=== PATIENT | female | born 1995 ===

== ENCOUNTER → 2018-09-16 12:51 | Outpatient (CLI) | payer OTHER, MEDICAID, SELFPAY ==
[2018-09-16 13:44] LABS: Add Manual Diff / Slide Review NO; Basophils Percent Auto 0.4 % (0-2); Eosinophils Percent Auto 1.5 % (2-4); Hematocrit 40.1 % (36-46); Hemoglobin 13.5 g/dL (12.0-16.0); Lymphocytes Percent Auto 25.5 % (25-40); Mean Corpuscular HGB Conc 33.7 % (30-36); Mean Corpuscular Hemoglobin 28.5 PG (26-34); Mean Corpuscular Volume 84.5 fL (80-100); Monocytes Percent Auto 7.2 % (3-14); Neutrophils Absolute Auto 5500 /uL (3000-5900); Neutrophils Percent Auto 65.4 % (50-75); Platelet Count 226 X10^3/uL (150-400); Red Blood Cell Count 4.75 X10^6/uL (4.0-5.2); Red Cell Distribution Width 13.1 % (11.6-14.8); White Blood Cell Count 8.4 X10^3/uL (4.5-11.0)
[2018-09-16 16:20] LABS: HIV 1 and 2 Antibody NEGATIVE (NEGATIVE); Hep C Virus Ab w/Reflex Quant NEGATIVE s/c (NEGATIVE); Hepatitis B Surface Antigen NEGATIVE s/c (NEGATIVE); Rubella Antibody IgG 11.2 IU/mL (>15)
[2018-09-18 14:59] LABS: RPR Screen Nonreactive (Nonreactive)
[2018-09-18 15:02] LABS: Varicella IgG Antibody < 135.00 Index (< 135.00)
[2018-09-18 15:06] LABS: HSV 2 IGG AB < 0.90 index (< 0.90)
== END ==
PROVIDERS: Visit Provider Specialist
DX: Z34.91 Encounter for supervision of normal pregnancy, unspecified, first trimester (principal)
CPT/HCPCS: 36415; 80055; 86695; 86696; 86703; 86787; 86803; 86850; 86900; 86901

== ENCOUNTER → 2018-12-10 15:02 | Outpatient (CLI) | payer OTHER, MEDICAID, SELFPAY ==
--- NOTE | 2018-12-10 15:03 | DI.US.S_ITS ---
PROCEDURE: US OB >= 14 WEEKS FETUS INDICATIONS: Anatomy Scan OUTSIDE/PRIOR DATING DATA: Last menstrual period (LMP): 07/22/2018. LMP-based estimated date of delivery (GRUPO): 04/28/2019. First dating scan (date and location): 09/22/2018. Estimated date of delivery (GRUPO) from first dating scan: 04/30/2019. TECHNIQUE: Real-time scanning was performed of the fetus, with image documentation and biometric measurements. COMPARISON: [facility], OB >= 14 WEEKS FETUS, 11/24/2018, 13:56. [facility], OB <= 14 WEEKS FETUS, 09/22/2018, 16:42. FINDINGS: General: A single living intrauterine gestation is present. Presentation: Vertex Placenta: Placental position is fundal, without previa. Amniotic fluid index: 14.6 cm, normal range is 5-24 cm. heart rate: 155 beats per minute. Maternal cervical canal: 3.1 cm long. Normal lower limit is 2.5 cm. biometrics: Biparietal diameter: 19 weeks 6 days Head circumference: 20 weeks 0 days Abdominal circumference: 21 weeks 0 days Femur length: 20 weeks 3 days Estimated gestational age from initial scan: 19 weeks 6 days. Composite gestational age from present scan: 20 weeks 2 days Estimated weight and percentile: 366 g; 86th percentile Measurement variability for biometric dating: +/- 7 days from 14 weeks to 15 weeks 6 days gestation, +/- 10 days from 16 weeks to 21 weeks 6 days gestation, +/- 2 weeks from 22 weeks to 27 weeks 6 days gestation, +/- 3 weeks for 28 weeks gestation or later. weight reference: 4500 g or EFW >90/95% is considered macrosomia or large for gestational age. EFW <10% is small for gestational age. EFW 5% or less is considered intra-uterine growth restriction. Anatomic survey: Neuro: Ventricles are non-dilated at less than 10 mm. Cisterna magna is normal at 3-11 mm. Cerebellum is normal in size and morphology. Nuchal skin fold: Normal at less than 6 mm between 14-21 weeks gestational age. Face: Nose and lips, facial profile are normal. Spine: No evidence for spina bifida. Heart: 4-chambered heart is present, with normal ventricular outflow tracts. Diaphragm: Diaphragm is intact. Stomach: Left-sided stomach is present. Kidneys: No hydronephrosis. Normal is less than 5 mm in 2nd trimester, less than 7 mm in 3rd trimester. Cord: 3-vessel cord has orthotopic insertion. Bladder: Normal in size. Extremities: All 4 extremities identified. IMPRESSION: 1. Single living intrauterine fetus with appropriate interval growth. 2. Normal anatomic survey. Dictated by: Michelle Kaur MD, PhD on 12/10/2018 at 16:33 Approved by: Michelle Kaur MD, PhD on 12/10/2018 at 16:36
== END ==
PROVIDERS: Family Provider Specialist; PCP Specialist; Visit Provider Specialist
DX: Z36.89 Encounter for other specified antenatal screening (principal); Z3A.20 20 weeks gestation of pregnancy
CPT/HCPCS: 76811

== ENCOUNTER → 2019-01-25 13:34 | Outpatient (CLI) | payer OTHER, MEDICAID, SELFPAY ==
[2019-01-25 15:14] LABS: Hematocrit 35.9 % (36-46); Hemoglobin 12.1 g/dL (12.0-16.0)
[2019-01-25 15:38] LABS: GTT (PREG) 1 Hour PP 50gm Dose 95 mg/dL (76-139)
== END ==
PROVIDERS: Family Provider Specialist; PCP Specialist; Visit Provider Specialist
DX: Z34.82 Encounter for supervision of other normal pregnancy, second trimester (principal); Z3A.26 26 weeks gestation of pregnancy
CPT/HCPCS: 82950; 85014; 85018

== ENCOUNTER → 2019-03-30 15:42 | Outpatient (CLI) | payer OTHER, MEDICAID, SELFPAY ==
[2019-03-31 13:13] LABS: Strep Grp B PCR NEG for Grp B Strep
== END ==
PROVIDERS: Family Provider Specialist; PCP Specialist; Visit Provider Specialist
DX: Z34.83 Encounter for supervision of other normal pregnancy, third trimester (principal); Z3A.35 35 weeks gestation of pregnancy
CPT/HCPCS: 87653

== ENCOUNTER 2019-04-18 12:18 | Inpatient (IN) | payer OTHER, MEDICAID, SELFPAY ==
--- NOTE | 2019-04-18 13:45 | PM.OBHP.1 ---
OB HPI Date/Time Date of admission: 04/18/19 Date Patient Seen: 04/18/19 Time Patient Seen: 13:46 History of Present Condition Chief complaint: EVALUATION OF LABOR : 2 Para: 1 Estimated Date of Delivery: 04/28/19 Estimated Gestational Age (weeks): 38 and Narrative: Lauren Horne is a 23 year old female two para one with an GRUPO of 04/24/2019. Patient is had an uneventful . All initial laboratory studies were normal. Her GBS screen was negative. Glucose screen was negative. Patient presents in labor over the last 2-3 hours with regular contractions. History of Present care: good care, initiated at week # (8), number of visits (11) and pounds weight gain (8) Dating criteria: LMP confirmed by 1st trimester US Ultrasounds: normal 1st trimester US and normal mid trimester US Obstetrical complications: none Medical complications: none Preadmission Labs Blood type: A (+) positive -: Antibody screen: negative, Cystic fibrosis screen: unknown, GBS status: negative, HBsAG: negative, HIV: negative, HSV 1: negative, HSV 2: negative and RPR/VDLR: negative -: Chlamydia screen: detected (Negative) and Gonorrhea screen: detected (Negative) -: Rubella: not immune and Varicella: not immune HCT: 40 HCAB: negative PAP: Normal Integrated screen: Negative Sequential screen: Negative 1 hr GTT: 95 Evaluation Evaluation Variability: Moderate (11-25) monitor accelerations: Present monitor decelerations: Absent Contraction Frequency (minutes): 3 Uterine Contraction Intensity: Moderate Category of Tracing: I Cervical dilation (cm): 5 Cervical effacement (%): 100 Meds Home Medications Medication Instructions Recorded Confirmed Type Double Electric Breast Pump #1 each 02/09/19 Rx Allergies Allergy/AdvReac Type Severity Reaction Status Date / Time No Known Drug Allergies Allergy Unknown Unverified 01/20/18 12:35 [NO KNOWN DRUG ALLERGIES] Review of Systems Review of Systems All systems reviewed & are unremarkable except as noted in HPI and below Exam Const General: cooperative and healthy appearing HENMT Head: normal to inspection Ears: hearing grossly normal bilaterally Nose: external nose normal Face and sinus: normal facial exam Mouth: oral mucosae normal, lip normal, tongue normal and moist mucous membranes Teeth and gingiva: dentition normal Throat: posterior oropharynx normal Eyes General: appearance normal, both eyes and all related structures Neck Neck: normal visual inspection and full ROM Chest Chest: normal inspection of the chest and normal palpation of entire chest wall Breast inspection: normal inspection of the breasts and normal inspection of the axillae Breast Palpation: normal palpation of the breasts and normal palpation of the axillae Resp Effort & Inspection: normal respiratory effort Auscultation: clear to auscultation bilaterally Cardio Palpation: normal PMI Rate: regular rate Rhythm: regular rhythm Heart Sounds: S1 normal and S2 normal GI Inspection: normal to inspection Palpation: soft and no hepatosplenomegaly Percussion: normal to percussion Auscultation: normal bowel sounds External Female Exam: external appearance normal and normal appearance of the urethra OB/External & Speculum: external exam normal Manual OB Exam: dilated 5, effaced fully and station 0 Uterus Location (Fundal Height): 38 Estimated Weight (lbs): 7 Amniotic Fluid: clear Back/Spine/Pelvis Thoracic/Lumbar Spine: thoracic and lumbar spine normal to inspection Skin General: no rashes or lesions noted Neuro General: alert, oriented x3, tone normal and moves all extremities Cognition: normal cognition Speech: speech normal Gait: normal gait Motor: muscle tone normal throughout Sensory Exam: no sensory deficits noted Extrem General: normal to inspection and normal exam except as noted Psych Appearance: grossly normal and well kempt Mental Status: mental status grossly normal Speech and Movement: speech and movement normal Objective ECG Impression: Term intrauterine 38 and half weeks Active labor Artificial rupture membranes shows clear fluid Plan is careful observation and epidural anesthesia Assessment and Plan Assessment and Plan Assessment and Plan narrative: Term intrauterine 38 and four 7th weeks Vertex presentation Active labor Artificial rupture membranes with clear fluid
[2019-04-18] MEDS: LACTATED RINGERS 1,000 ML 100 ML IV (14:14)
[2019-04-18 14:15] VITALS: BP 126/69
[2019-04-18 14:25] LABS: Add Manual Diff / Slide Review NO; Basophils Absolute Auto 100 /uL (0-100); Basophils Percent Auto 0.5 % (0-2); Eosinophils Absolute Auto 0 /uL (0-450); Eosinophils Percent Auto 0.1 % (2-4); Hematocrit 36.5 % (36-46); Hemoglobin 12.5 g/dL (12.0-16.0); Lymphocytes Absolute Auto 1900 /uL (1100-4500); Lymphocytes Percent Auto 15.2 % (25-40); Mean Corpuscular HGB Conc 34.1 % (30-36); Mean Corpuscular Hemoglobin 29.3 PG (26-34); Mean Corpuscular Volume 85.9 fL (80-100); Monocytes Absolute Auto 500 /uL (0-900); Monocytes Percent Auto 3.9 % (3-14); Neutrophils Absolute Auto 10300 /uL (1500-7000); Neutrophils Percent Auto 80.3 % (50-75); Platelet Count 219 X10^3/uL (150-400); Red Blood Cell Count 4.25 X10^6/uL (4.0-5.2); White Blood Cell Count 12.8 X10^3/uL (4.5-11.0)
[2019-04-18] MEDS: OXYTOCIN PREMIX 30 UNIT/500 ML PLAST..BAG IV (15:54)
--- NOTE | 2019-04-18 16:23 | P.PCNOB_ITS ---
Delivery date: 04/18/19 Intrapartal events: None Cervical ripening method: none Induction method: none Delivery augmentation: pitocin Delivery monitor: external FHT and external uterine Route of delivery: L&D Laceration Description: None Estimated blood loss (mL): 300 Anesthesia type: Epidural Complications: None Narrative: The patient is a 23-year-old Filipina female two para one who presented at 38 weeks of in active labor at 4 cm. Her ant epartum course was totally uneventful. GBS was negative. Glucose screen was normal. All testing for abnormalities in the 1st and 2nd trimester were normal as well. The patient progressed rapidly to complete and then pushed for approximately 1 hour and delivered spontaneously a live born female at 5 minutes in good condition. There is no PCR me. There were no perineal periurethral vaginal or cervical tears. Placenta delivered spontaneously. The cord had three vessels. Cord blood was obtained. The estimated blood loss was 300 cc Plan for aftercare: Routine aftercare
[2019-04-18 22:22] VITALS: TEMP 37.7
[2019-04-18] MEDS: IBUPROFEN 600 MG TABLET PO (22:22)
[2019-04-19 06:20] LABS: Add Manual Diff / Slide Review NO; Basophils Absolute Auto 100 /uL (0-100); Basophils Percent Auto 0.9 % (0-2); Eosinophils Absolute Auto 0 /uL (0-450); Eosinophils Percent Auto 0.2 % (2-4); Hemoglobin 11.7 g/dL (12.0-16.0); Lymphocytes Absolute Auto 3200 /uL (1100-4500); Lymphocytes Percent Auto 24.7 % (25-40); Mean Corpuscular HGB Conc 34.4 % (30-36); Mean Corpuscular Hemoglobin 29.9 PG (26-34); Mean Corpuscular Volume 86.8 fL (80-100); Monocytes Absolute Auto 1000 /uL (0-900); Monocytes Percent Auto 7.3 % (3-14); Neutrophils Absolute Auto 8700 /uL (1500-7000); Neutrophils Percent Auto 66.9 % (50-75); Platelet Count 191 X10^3/uL (150-400); Red Blood Cell Count 3.92 X10^6/uL (4.0-5.2); Red Cell Distribution Width 13.9 % (11.6-14.8); White Blood Cell Count 13.1 X10^3/uL (4.5-11.0)
[2019-04-19] MEDS: DOCUSATE 250 MG CAPSULE PO (08:58)
[2019-04-19] MEDS: PRENATAL VIT,CALC/IRON/FOLIC 1 TABLET 1 TAB PO (08:58)
[2019-04-19] MEDS: FERROUS GLUCONATE 324 MG TABLET PO (08:58)
[2019-04-19 10:03] VITALS: BP 121/80; PULSE 78; RESP 16; TEMP 37.3
--- NOTE | 2019-04-19 11:15 | P.DS_ITS ---
Discharge Providers Date of admission: 04/18/19 12:18 Discharge Date: 04/19/19 Primary care physician: Lori Will MD Consults: 04/18/19 13:57 Consult to Anesthesiology Urgent Comment: Consulting Provider: Anesthesiologist Reason for consultation: Epidural Has provider been notified: No 04/18/19 17:32 Consult to [employer] Routine Comment: Discharge provider: Giovany Llamas MD Summary Date Patient Seen: 04/19/19 Time Patient Seen: 11:13 Procedures: Epidural anesthesia Spontaneous vaginal Hospital Course: Delivery patient is a 23-year-old Mong[place]ian female two now para two presented in active labor. The patient received epidural anesthesia. Patient progressed rapidly to complete pushed and delivered a live-born male with scores of nine at 1 minute nine at 5 minutes in good condition. The estimated blood loss was 300 cc. There were no cervical vaginal or urethral or perineal tears. Post delivery the patient did well. She remained afebrile with stable vital signs and was progressively element in ambulated. She was discharged home for follow-up in four weeks. Peripartum Data Delivery Method: Natural Vaginal Laceration description: None complications: none Status at Discharge Cognitive/behavioral status at discharge: oriented Functional status at discharge: independent ambulation Overall status at discharge: patient is progressing back to baseline Time Spent with Patient Total time spent providing and/or coordinating discharge services: Less than 30 minutes Objective Labs Result Diagrams: 04/19/19 06:00 Labs: Laboratory Results - last 24 hr 04/18/19 04/18/19 04/19/19 13:57 13:57 06:00 WBC 12.8 H 13.1 H RBC 4.25 3.92 L Hgb 12.5 11.7 L Hct 36.5 34.0 L MCV 85.9 86.8 MCH 29.3 29.9 MCHC 34.1 34.4 RDW 14.0 13.9 Plt Count 219 191 Neut % (Auto) 80.3 H 66.9 Lymph % (Auto) 15.2 L 24.7 L Lander % (Auto) 3.9 7.3 Eos % (Auto) 0.1 L 0.2 L Baso % (Auto) 0.5 0.9 Neut # (Auto) 85494 H 8700 H Lymph # (Auto) 1900 3200 Lander # (Auto) 500 1000 H Eos # (Auto) 0 0 Baso # (Auto) 100 100 Blood Type A Positive Antibody Screen Negative Exam Vital Signs (past 8 hours): - 04/19/19 10:03 Temperature 99.1 F Pulse Rate 78 Respiratory Rate 16 Blood Pressure 121/80 Discharge Plan Discharge Plan Patient Disposition: Home Discharge Med Rec/Prescriptions Prescriptions: New oxycodone-acetaminophen 5-325 mg Tablet 2 tab PO Q4HR Qty: 10 RF: 0 ferrous sulfate [FerrouSul] 325 mg (65 mg iron) tablet 325 mg PO DAILY Qty: 60 RF: 0 benzocaine-menthol [Dermoplast (with menthol)] 20-0.5 % Aerosol 1 spray topical Q1HR PRN (Reason: perineal pain) Qty: 56 RF: 0 ibuprofen 600 mg Tablet 600 mg PO Q6HR PRN (Reason: Pain, Mild (1-3)) Qty: 14 RF: 0 docusate sodium 250 mg Capsule 250 mg PO DAILY Qty: 10 RF: 0 Continued Double Electric Breast Pump Qty: 1 RF: 0 Follow up/Referrals: Lori Will MD [Primary Care Provider] - 05/17/19 (please follow up w/ Dr. Will on May.18 @ 12:30pm) Provider Discharge Instructions Diet: Diet as Tolerated Activity: Up ad jesus alberto Skin/Wound/Dressing Care Report to your healthcare provider any signs of infection, such as:: chills, fever, increased pain, unusual drainage and unusual redness Visit Report/Discharge Packet Stand Alone Forms: Discharge: Care Visit Report Forms: Stroke Signs & Symptoms Discharge Data Primary Care Provider: Lori Will Attending Provider: Lori Will Admit Date/Time: 04/18/19 12:18
[2019-04-19] MEDS: MEASLES,MUMPS,RUBELLA VACC/PF 0.5 ML VIAL SUBCUT (12:31)
== END 2019-04-19 13:04 | disposition home or self-care (01) | DRG 807 ==
PROVIDERS: Admitting Provider Specialist; Family Provider Specialist; PCP Specialist; Visit Provider Specialist
DX: O80 Encounter for full-term uncomplicated delivery (principal); Z37.0 Single live birth; Z3A.38 38 weeks gestation of pregnancy
CPT/HCPCS: 01967; 59050; 59400; 59409; 85025; 86850; 86900; 86901; G0379; J2590

== ENCOUNTER → 2023-07-10 14:50 | Outpatient (CLI) | payer OTHER, MEDICAID, SELFPAY ==
[2023-07-10 15:27] LABS: Add Manual Diff / Slide Review NO; Basophils Absolute Auto 0 /uL (0-100); Basophils Percent Auto 0.6 % (0-2); Eosinophils Absolute Auto 100 /uL (0-450); Eosinophils Percent Auto 1.6 % (2-4); Hematocrit 36.8 % (36-46); Hemoglobin 12.8 g/dL (12.0-16.0); Lymphocytes Absolute Auto 1900 /uL (1100-4500); Lymphocytes Percent Auto 22.7 % (25-40); Mean Corpuscular HGB Conc 34.9 % (30-36); Mean Corpuscular Hemoglobin 29.1 PG (26-34); Mean Corpuscular Volume 83.5 fL (80-100); Monocytes Absolute Auto 500 /uL (0-900); Monocytes Percent Auto 5.6 % (3-14); Neutrophils Absolute Auto 5900 /uL (1500-7000); Neutrophils Percent Auto 69.5 % (50-75); Platelet Count 224 X10^3/uL (150-400); Red Blood Cell Count 4.41 X10^6/uL (4.0-5.2); Red Cell Distribution Width 13.8 % (11.6-14.8); White Blood Cell Count 8.4 X10^3/uL (4.5-11.0)
[2023-07-11 05:28] LABS: RPR Screen Non Reactive (Non Reactive)
[2023-07-11 10:33] LABS: Varicella IgG Antibody <135 index (Immune >165)
[2023-07-13 15:58] LABS: Hepatitis B Surface Antigen NEGATIVE s/c (NEGATIVE); Rubella Antibody IgG 11.7 IU/mL (>15)
[2023-07-13 16:16] LABS: HIV 1 & 2 Ab/Ag 4th Gen Combo NEGATIVE (NEGATIVE); Hep C Virus Ab w/Reflex Quant NEGATIVE s/c (NEGATIVE)
== END ==
PROVIDERS: Family Provider Specialist; PCP Family Medicine; Referring Provider Student in an Organized Health Care Education/Training Program; Visit Provider Student in an Organized Health Care Education/Training Program
DX: Z34.80 Encounter for supervision of other normal pregnancy, unspecified trimester (principal)
CPT/HCPCS: 36415; 80055; 86787; 86803; 86850; 86900; 86901; 87389

== ENCOUNTER → 2023-09-02 14:57 | Outpatient (CLI) | payer OTHER, MEDICAID, SELFPAY ==
--- NOTE | 2023-09-02 14:58 | DI.US.S_ITS ---
PROCEDURE: US OB >= 14 WEEKS FETUS INDICATIONS: ANATOMY OUTSIDE/PRIOR DATING DATA: Last menstrual period (LMP): 04/12/2023 LMP-based estimated date of delivery (GRUPO): 01/17/2024. First dating scan (date and location): 09/02/2023. Estimated date of delivery (GRUPO) from first dating scan: 01/13/2024. Working GRUPO is 01/17/2024 TECHNIQUE: Real-time scanning was performed of the fetus, with image documentation and biometric measurements. COMPARISON: [facility], US, US OB >= 14 WEEKS FETUS, 03/30/2019, 15:54. FINDINGS: General: A single living intrauterine gestation is present. Presentation: Vertex. Placenta: Placental position is posterior , without previa. Amniotic fluid index: 15.2 cm cm, normal range is 5-24 cm. Single deepest vertical pocket is 4.5 cm cm. heart rate: 152 beats per minute. Maternal cervical canal: 3.8 cm cm long. Normal lower limit is 2.5 cm. biometrics: Biparietal diameter: 21 weeks 3 days Head circumference: 20 weeks 5 Abdominal circumference: 21 weeks 5 days Femur length: 20 weeks 2 days Clinically estimated gestational age: 20 weeks 3 days Composite gestational age from present scan: 21 weeks 0 days Estimated weight and percentile: 397 g, 80th percentile Anatomic survey: Neuro: Ventricles are non-dilated at less than 10 mm. Cisterna magna is normal at 3-11 mm. Cerebellum is normal in size and morphology. Nuchal skin fold: Normal at less than 6 mm between 14-21 weeks gestational age. Face: Nose and lips, facial profile are normal. Spine: No evidence for spina bifida. Heart: 4-chambered heart is present, with normal ventricular outflow tracts. Diaphragm: Diaphragm is intact. Stomach: Left-sided stomach is present. Kidneys: No hydronephrosis. Normal is less than 5 mm in 2nd trimester, less than 7 mm in 3rd trimester. Cord: 3-vessel cord has orthotopic insertion. Bladder: Normal in size. Extremities: All 4 extremities identified. Left inferior intramural fibroid measuring 2.6 cm. IMPRESSION: 1. Single living IUP with composite gestational age of 21 weeks corresponding to ultrasound GRUPO of 01/13/2024. 2. Normal anatomic survey We strive to produce accurate, complete, and clear reports of imaging services. To assist us in improving patient care, this report was composed using standard report templates and voice recognition software. Therefore, it may contain abnormal punctuation, insertions and/or omissions. Occasional wrong-word or sound-alike substitutions may occur. Though we review the report and make efforts to correct it, we do recommend that the report be read carefully in proper context to recognize any text inaccuracies. Dictated by: on 09/02/2023 at 16:43 Transcribed by: on 09/02/2023 at 16:45 Approved by: Brando Swain M.D. on 09/04/2023 at 8:14
== END ==
PROVIDERS: Family Provider Specialist; PCP Family Medicine; Referring Provider Student in an Organized Health Care Education/Training Program; Visit Provider Student in an Organized Health Care Education/Training Program
DX: Z34.82 Encounter for supervision of other normal pregnancy, second trimester (principal); Z3A.21 21 weeks gestation of pregnancy
CPT/HCPCS: 76811

== ENCOUNTER → 2023-10-26 13:19 | Outpatient (CLI) | payer OTHER, MEDICAID, SELFPAY ==
[2023-10-26 15:43] LABS: Hematocrit 34.7 % (36-46); Hemoglobin 11.8 g/dL (12.0-16.0)
[2023-10-26 16:25] LABS: GTT (PREG) 1 Hour PP 50gm Dose 113 mg/dL (76-139)
== END ==
PROVIDERS: Family Provider Specialist; PCP Family Medicine; Referring Provider Student in an Organized Health Care Education/Training Program; Visit Provider Student in an Organized Health Care Education/Training Program
DX: Z34.82 Encounter for supervision of other normal pregnancy, second trimester (principal); Z3A.26 26 weeks gestation of pregnancy
CPT/HCPCS: 36415; 82950; 85014; 85018

== ENCOUNTER → 2023-11-20 10:40 | Outpatient (CLI) | payer OTHER, MEDICAID, SELFPAY ==
--- NOTE | 2023-11-20 10:41 | DI.US.S_ITS ---
PROCEDURE: US OB LIMITED INDICATIONS: Uterine size-date discrepancy, antepartum OUTSIDE/PRIOR DATING DATA: Last menstrual period (LMP): 04/12/2023 LMP-based estimated date of delivery (GRUPO): 01/17/2024. First dating scan (date and location): 09/02/2023. Estimated date of delivery (GRUPO) from first dating scan: 01/13/2024. TECHNIQUE: Real-time scanning was performed of the fetus, with image documentation and biometric measurements. COMPARISON: None. FINDINGS: General: A single living intrauterine gestation is present. Presentation: Vertex. Placenta: Placental position is posterior , without previa. Amniotic fluid index: 11.8 cm, normal range is 5-24 cm. Single deepest vertical pocket is 5.3 cm. heart rate: 137 beats per minute. Maternal cervical canal: 4.3 cm long. Normal lower limit is 2.5 cm. biometrics: Biparietal diameter: 31 weeks 4 days Head circumference: 33 weeks 2 days Abdominal circumference: 35 weeks 1 day Femur length: 30 weeks 1 day Clinically estimated gestational age: 31 weeks 5 days Composite gestational age from present scan: 32 weeks 4 days Estimated weight and percentile: 2142 g; 85th percentile Other: Previously visualized intramural fibroid not identified on today's exam. IMPRESSION: Single living IUP redemonstrated and interval growth is upper limits of normal. We strive to produce accurate, complete, and clear reports of imaging services. To assist us in improving patient care, this report was composed using standard report templates and voice recognition software. Therefore, it may contain abnormal punctuation, insertions and/or omissions. Occasional wrong-word or sound-alike substitutions may occur. Though we review the report and make efforts to correct it, we do recommend that the report be read carefully in proper context to recognize any text inaccuracies. Dictated by: Martín POLLACK Interpreted: Tayo Price MD on 11/20/2023 at 12:43 Transcribed by: MAURILIO on 11/20/2023 at 12:44 Approved by: Torie Corado M.D. on 12/11/2023 at 22:46
== END ==
PROVIDERS: Family Provider Specialist; PCP Family Medicine; Referring Provider Student in an Organized Health Care Education/Training Program; Visit Provider Student in an Organized Health Care Education/Training Program
DX: O26.843 Uterine size-date discrepancy, third trimester (principal); Z3A.32 32 weeks gestation of pregnancy
CPT/HCPCS: 76815

== ENCOUNTER 2023-11-26 14:29 | Observation (INO) | payer OTHER, MEDICAID, SELFPAY ==
--- NOTE | 2023-11-26 15:34 | PM.OBTRLD ---
Visit Information Visit Information Date of evaluation: 11/26/23 Primary OB Provider: Nasrin Jansen Comments/Additional reasons for admission: 28yo at 32+4wks presented to triage for a fall in the bathroom today. She states that she hadn't eaten anything today, because she had a low appetite, and then when she ate some chocolate, it made her nauseous. When she threw up in the restroom, she felt dizzy/lightheaded and grabbed the shelf to steady herself but fell on her back into the shower. She denies hitting her head or her abdomen. She denies any vaginal bleeding or leaking fluid. Has some tightening of her abdomen, but no pain. Denies fever, chills, diarrhea, recent illness, or URI symptoms. Vital Signs Vital Signs: BP 124/75, HR 94 PFSH Medical History (Updated 11/27/23 @ 15:44 by Nasrin Jansen DO) Rubella non-immune status, antepartum (02/20/16) Susceptible to varicella (non-immune), currently (02/20/16) Atypical mole Spontaneous vaginal delivery Surgical History No pertinent past surgical history Social History marital status: unmarried,living together number of children: 2 household members: significant other and children lives independently: Yes caregiver/support person: Yes housing: house pets and animals: Yes (2 cats, s/o will manage litter boxes) education level: high school occupational status: unemployed current occupational exposures/hazards: No special maegan needs: No travel history: over 6 months ago seatbelt use: always water heater temp set < 120 deg: Yes working smoke detector in home: Yes fire extinguisher in home: Yes carbon monox detector in home: Yes firearms in home: Yes firearms unloaded and locked: Yes do you feel safe at home: Yes Smoking Status: Never smoker (quit age 18) second hand exposure: No alcohol intake: former (occasionally when not ) substance use type: does not use during the past year weight has: remained stable well-balanced diet: rarely or never daily servings fruits/ve-1 caffeine: No Type(s) of exercise: walking frequency: 1-2 times per week Review of Systems Review of Systems ROS: Yes All systems reviewed with the patient and are negative except as otherwise documented Exam Vital Signs (past 8 hours): vitals as above Const General: cooperative, comfortable and No acute distress Resp Effort & Inspection: normal respiratory effort and able to speak in complete sentences Other: no fundal tenderness appreciated Evaluation Evaluation Baseline heart rate: 140 Variability: Moderate (11-25) monitor accelerations: Present Monitor Decelerations: Absent Contraction Frequency (minutes): 5 Uterine Contraction Intensity: Mild Category of Tracing: Reactive Cervical dilation (cm): 1 Comments: Negative fibronectin Normal fibrinogen level Diagnosis, Plan/Disposition Final Diagnosis (1) Nausea and vomiting during : Status: Acute (2) contractions: Status: Acute Plan/Disposition Plan: 28-year-old at 32+ 4 weeks evaluated in triage for fall, as well as uterine contractions. After IV hydration and observation, her contractions spaced out. Her cervical exam was unchanged after 2 hours, with a negative FFN. Thus she was deemed appropriate for discharge home. -patient to follow up in clinic tomorrow as scheduled OB Disposition: home
[2023-11-26] MEDS: LACTATED RINGERS 1,000 ML 1000 ML IV (16:00)
[2023-11-26 17:18] LABS: Fetal Fibronectin Negative
[2023-11-26 17:26] LABS: Fibrinogen 404 mg/dL (238-498)
[2023-11-26 19:27] LABS: Appearance Urine UA CLEAR; Bilirubin Urine UA 1+ (NEGATIVE); Color Urine UA YELLOW; Glucose Urine UA NEGATIVE (Negative); Ketones Urine UA 3+ (NEGATIVE); Leukocyte Esterase Urine UA 2+ (NEGATIVE); Nitrite Urine UA NEGATIVE (Negative); Occult Blood Urine UA NEGATIVE (Negative); Protein Urine UA TRACE (Negative); Specific Gravity Urine UA 1.025 (1.000-1.035)
[2023-11-26 19:28] LABS: pH Urine UA 5.5 (4.5-8.0)
[2023-11-26 19:39] LABS: Bacteria Urine Occasional (0-1); Culture Indicated Urine Specimen Cultured; Mucus Urine 4+ (Negative); RBC Urine 0-1/HPF (0-5/HPF); Squamous Epithelial Cell Urine 1-5 /HPF (0-5/HPF); Urine Volume 10mL (spun); WBC Urine 5-10/HPF (0-5/HPF)
== END 2023-11-26 20:00 | disposition home or self-care (01) ==
PROVIDERS: Admitting Provider Student in an Organized Health Care Education/Training Program; Family Provider Specialist; PCP Family Medicine; Referring Provider Student in an Organized Health Care Education/Training Program; Visit Provider Student in an Organized Health Care Education/Training Program
DX: O21.9 Vomiting of pregnancy, unspecified (principal); O47.03 False labor before 37 completed weeks of gestation, third trimester; O26.893 Other specified pregnancy related conditions, third trimester; W18.30XA Fall on same level, unspecified, initial encounter; Z3A.32 32 weeks gestation of pregnancy
CPT/HCPCS: 59025; 81001; 82731; 85384; 87086; 96360; 96361; G0378; G0379

== ENCOUNTER 2023-12-15 04:38 | Inpatient (IN) | payer OTHER, MEDICAID, SELFPAY ==
--- NOTE | 2023-12-15 06:20 | PM.OBHP.IH.1 ---
OB HPI Date/Time Date of admission: 12/15/23 Date Patient Seen: 12/15/23 Time Patient Seen: 06:20 History of Present Condition Chief complaint: Labor GRUPO Calculator Estimated Delivery Date Method Current WG Current Estimate 01/17/24 LMP (Certain) 35w 2d Other Estimates 01/16/24 Ultrasound #1 35w 3d Estimated Gestational Age (weeks): 35+2 : 3 Para: 2 care: good care, initiated at week # (12), number of visits (7) and pounds weight gain (20) Dating criteria OB: LMP confirmed by 1st trimester US Ultrasounds: normal 1st trimester US and normal mid trimester US Obstetrical complications: none Medical complications OB: none Preadmission Labs Last OB Lab Results: Blood Type A Positive 07/10/23 14:57 Antibody Screen Negative 07/10/23 14:57 Hematocrit 34.7 % (36-46) L 10/26/23 13:25 Hemoglobin 11.8 g/dL (12.0-16.0) L 10/26/23 13:25 Hepatitis B Surface Antigen Negative s/c (NEGATIVE) 07/10/23 14:57 Hepatitis C Antibody Negative s/c (NEGATIVE) 07/10/23 14:57 Rubella Antibody 11.7 IU/mL (>15) L 07/10/23 14:57 Varicella-Zoster IgG Antibody <135 index (Immune >165) L 07/10/23 14:57 Glucose 1 Hour 113 mg/dL (76-139) 10/26/23 13:25 Group B Streptococcus (PCR) Neg for grp b strep 03/30/19 18:35 -: Chlamydia screen: negative, Gonorrhea screen: negative and Urine: negative -: PAP smear: Normal External Labs -: Urine: negative Prior (ies) Past Pregnancies Del. Date GA/Weeks Labor Lgth Wt Sex Route Outcome Anesthesia Place Delv Breastfeed Preg Comp Name 04/03/16 37 12 6 lb 7 oz Male vaginal live - full term epidural IH 2 years none Andrei 04/18/19 38 6 6 lb 5 oz Female vaginal live - full term epidural IH 3 years none Carlos Evaluation Evaluation Baseline heart rate: 125 Variability: Moderate (11-25) monitor accelerations: Present Monitor Decelerations: Absent Contraction Frequency (minutes): 3 Uterine Contraction Intensity: Moderate Status: Category l Dilation (cm): 10 Effacement (%): 100 PFSH Medical History (Updated 11/27/23 @ 15:44 by Nasrin Jansen DO) Rubella non-immune status, antepartum (02/20/16) Susceptible to varicella (non-immune), currently (02/20/16) Atypical mole Spontaneous vaginal delivery Surgical History No pertinent past surgical history Social History marital status: unmarried,living together number of children: 2 household members: significant other and children lives independently: Yes caregiver/support person: Yes housing: house pets and animals: Yes (2 cats, s/o will manage litter boxes) education level: high school occupational status: unemployed current occupational exposures/hazards: No special maegan needs: No travel history: over 6 months ago seatbelt use: always water heater temp set < 120 deg: Yes working smoke detector in home: Yes fire extinguisher in home: Yes carbon monox detector in home: Yes firearms in home: Yes firearms unloaded and locked: Yes do you feel safe at home: Yes Smoking Status: Never smoker (quit age 18) second hand exposure: No alcohol intake: former (occasionally when not ) substance use type: does not use during the past year weight has: remained stable well-balanced diet: rarely or never daily servings fruits/ve-1 caffeine: No Type(s) of exercise: walking frequency: 1-2 times per week Meds Home Medications and Allergies Home Medications Medication Instructions Recorded Confirmed Type Double Electric Breast Pump #1 ea 02/09/19 11/27/23 Rx vitamin-ferrous sulfate tab PO 07/06/23 11/27/23 History 27 mg iron-folic acid 0.8 mg tablet Allergies Allergy/AdvReac Type Severity Reaction Status Date / Time No Known Drug Allergies Allergy Unknown Unverified 11/27/23 13:50 [NO KNOWN DRUG ALLERGIES] OB Exam Narrative Exam Narrative: Generally: Uncomfortable with contractions Fundal height: 36 cm Estimated weight: 6 lb Extremities: Trace edema Assessment and Plan Assessment and Plan Assessment and Plan narrative: Assessment: 28-year-old 3 para 2 at 35-,2/7 weeks gestation in active labor Status post spontaneous rupture of membranes GBS status unknown Plan: GBS prophylaxis Expected management to spontaneous vaginal delivery Time Spent with Patient Total time spent with greater than 50% in coordination of care (as documented) at patient's floor/unit and/or counseling patient:: 15-24 minutes
[2023-12-15 06:42] LABS: Add Manual Diff / Slide Review NO; Basophils Absolute Auto 0 /uL (0-100); Basophils Percent Auto 0.2 % (0-2); Eosinophils Absolute Auto 100 /uL (0-450); Eosinophils Percent Auto 0.4 % (2-4); Hematocrit 36.1 % (36-46); Hemoglobin 12.5 g/dL (12.0-16.0); Lymphocytes Absolute Auto 1700 /uL (1100-4500); Lymphocytes Percent Auto 12.7 % (25-40); Mean Corpuscular HGB Conc 34.7 % (30-36); Mean Corpuscular Volume 83.7 fL (80-100); Monocytes Absolute Auto 400 /uL (0-900); Monocytes Percent Auto 3.2 % (3-14); Neutrophils Absolute Auto 11300 /uL (1500-7000); Neutrophils Percent Auto 83.5 % (50-75); Platelet Count 187 X10^3/uL (150-400); Red Blood Cell Count 4.32 X10^6/uL (4.0-5.2); Red Cell Distribution Width 14.5 % (11.6-14.8); White Blood Cell Count 13.5 X10^3/uL (4.5-11.0)
[2023-12-15 06:54] LABS: Base Excess Cord Venous Blood -4 (-7.7-1.9); Cord Venous Blood PCO2 55.5 (27-56); Cord Venous Blood PO2 30 (17-41); Cord Venous Blood pH 7.229 (7.25-7.45); HCO3 Cord Venous Blood 23.2
[2023-12-15 06:55] LABS: O2 Saturation Cord Venous Bld 46 (14-75)
[2023-12-15] MEDS: IBUPROFEN 600 MG TABLET PO ×2 (08:05→23:16)
[2023-12-15 08:29] VITALS: BP 120/70
[2023-12-15] MEDS: DOCUSATE 100 MG CAPSULE PO (14:01)
[2023-12-16 06:48] LABS: Hematocrit 32.8 % (36-46); Hemoglobin 11.3 g/dL (12.0-16.0)
[2023-12-16 09:37] VITALS: BP 118/71; PULSE 71; RESP 16; TEMP 36.4
[2023-12-16] MEDS: PRENATAL VIT,CALC/IRON/FOLIC 1 TABLET 1 TAB PO (11:08)
[2023-12-16] MEDS: DOCUSATE 100 MG CAPSULE PO (11:08)
[2023-12-16] MEDS: MEASLES,MUMPS,RUBELLA VACC/PF 0.5 ML VIAL SUBCUT (11:10)
--- NOTE | 2023-12-16 19:58 | PM.OBPRVD ---
Events: Labor < 37 wks Labor & Delivery Delivery date: 12/15/23 Intrapartal Events: Precipitous Labor < 3 hours Cervical ripening method: none Induction method: none Delivery monitor: external FHT and external uterine Route of delivery: Episiotomy description: None L&D Laceration Description: None Quantitative Blood Loss: 235 Anesthesia Type: None Complications: None Narrative: Patient progressed rapidly in active labor after SROM with clear fluid. With one push, the vertex delivered over an intact perineum at 0600. The cord was double clamped and cut. Cord bloods obtained. The placenta delivered intact with a 3-V cord at 0605. Fundus massaged to firm. No lacerations. QBL: 235cc. Apgars 6 at 1 minute and 8 at 5 minutes. . Mom and infant stable to recovery. [place] Baby 1: gender: Male Presentation: vertex Position: Right Occiput Anterior Placenta delivery description: Spontaneous Cord Vessel Description: 3 Vessels and Clamped/Cut score (1 min): 6 score (5 min): 8 weight: 6 lb 10.2 oz Plan for aftercare: Routine care
--- NOTE | 2023-12-16 20:59 | P.DS_ITS ---
Discharge Providers Provider Date of admission: 12/15/23 04:38 Discharge Date: 12/16/23 Primary care physician: Jess Chris MD Consults: 12/16/23 06:27 Consult to Stripping Shovel Operator Routine Comment: Discharge provider: Smiley Villalpando MD Summary Hospital Course Date Patient Seen: 12/16/23 Time Patient Seen: 07:50 Diagnoses: 35+2 weeks gestation labor delivery Spontaneous rupture of membranes Precipitous delivery Hospital Course: Patient is a 28 year old who presented on the morning of 12/15/23 in labor. She had a spontaneous rupture of membranes with clear amniotic fluid. She progressed rapidly to complete and had a spontaneous vaginal delivery. Her course was unremarkable and she was discharged to home on PP day #1. Peripartum Data Delivery Method: Natural Vaginal Laceration Description: None Episiotomy description: None Procedures: Spontanous vaginal delivery complications: none 1: Gender: Male Disposition of : home Status at Discharge Cognitive/behavioral status at discharge: oriented Functional status at discharge: independent ambulation Overall status at discharge: patient is progressing back to baseline Time Spent with Patient Time attestation: Total time spent providing and/or coordinating discharge services: Time spent: Less than 30 minutes Objective Labs 12/16/23 06:35 Labs: Laboratory Results - last 24 hr 12/16/23 06:35 Hgb 11.3 L Hct 32.8 L Exam Narrative Exam Narrative: Gen: Patient lying in blood, holding infant, NAD Fundus: Firm U/-2 Ext: Negative Ruben's. No edema. Discharge Plan Discharge Plan Patient Disposition: Home Provider Discharge Comment: Call with fever, chills, or bleeding vaginally more than a pad in an hour Ibuprofen 600 mg every 6 hours as needed for cramps Tylenol 650 mg every 6 hours as needed Stool softener as needed Continue vitamins Discharge orders & Medications Prescriptions: Continued vit-ferrous sulfat-FA 27 mg iron- 0.8 mg tablet PO No Action (DME) Double Electric Breast Pump Qty: 1 0RF Rx Instructions: As directed for 99 months. Follow up/Referrals: Smiley Villalpando MD [Physician] - (Appointment with on Thr at 9:30 AM ) Diet/Activity/Treatments Diet: Regular Activity: Nothing in the vagina for 6 weeks Skin/Wound/Dressing Care Report to your healthcare provider any signs of infection, such as:: chills, fever, increased pain and unusual drainage Visit Report/Discharge Packet Instructions: DI for Labor and Delivery, Vaginal Stand Alone Forms: Patient Portal/API, Stroke Signs & Symptoms Discharge Data Primary Care Provider: Jess Chris
== END 2023-12-16 11:45 | disposition home or self-care (01) | DRG 560 ==
PROVIDERS: Admitting Provider Obstetrics & Gynecology; Family Provider Specialist; PCP Family Medicine; Referring Provider Obstetrics & Gynecology; Visit Provider Obstetrics & Gynecology
DX: O60.14X0 Preterm labor third trimester with preterm delivery third trimester, not applicable or unspecified (principal); Z3A.35 35 weeks gestation of pregnancy; Z37.0 Single live birth; O62.3 Precipitate labor
CPT/HCPCS: 36415; 59050; 59409; 82803; 85014; 85018; 85025; G0379

== ENCOUNTER 2024-04-15 12:29 | Emergency (ER) | payer SELFPAY ==
[2024-04-15 12:35] VITALS: BP 140/82; PULSE 77; RESP 13; TEMP 36.7; O2SAT 100; BMI 29.2
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
== END 2024-04-15 14:31 | disposition left against medical advice (07) ==
PROVIDERS: Emergency Provider Emergency Medicine; Family Provider Specialist; PCP Family Medicine
DX: S91.011A Laceration without foreign body, right ankle, initial encounter (principal); X58.XXXA Exposure to other specified factors, initial encounter
CPT/HCPCS: 73610; 99281